=== PATIENT | male | born 1965 ===

== ENCOUNTER → 2022-01-23 08:24 | Outpatient (REF) | payer OTHER, SELFPAY ==
--- NOTE | 2022-01-23 08:29 | CA_ITS ---
Transthoracic Echocardiogram Patient (Last, First, Middle): Ab Daniel K Gender: Male Date of : 1965 Age: 56 Procedure Date: 01/23/2022 Procedure Type: Transthoracic Echocardiogram Location: OP Height: 167.64 cm Weight: 68.04 kg BSA: 1.77 m2 Heart Rate: bpm BP: 120 / 80 mmHg Heart Surgeon: VH/TO Referring MD: Yvan Shi PA-C Access Rep: Lj Sams MD Symptoms: I11.9 - Hypertensive heart disease without heart failure Study Quality: Fair ECG Rhythm: Sinus Conclusions: - 1. Moderately enlarged left ventricle with grade 1 diastolic dysfunction with mild LVH and normal LV ejection fraction 55-60% 2. Severe aortic regurgitation, eccentric 3. Mildly dilated left atrium 4. Mildly dilated ascending aorta at 4.3 cm 5. Normal RV systolic pressure 6. No pericardial effusion Findings Left Ventricle Moderately increased left ventricular cavity size. There is mildly increased left ventricular wall thickness. The left ventricular systolic function is normal. The visually estimated ejection fraction is between 55-60%. Spectral Doppler is indicative of an impaired relaxation filling pattern. E/E prime ratio is <8, consistent with normal filling pressures. Evidence suggests grade I (mild) diastolic dysfunction. Right Ventricle Normal right ventricular cavity size and systolic function. Atria The left atrium is mildly dilated. There is no evidence of interatrial shunt. The right atrium is normal in size. Aortic Valve The aortic valve was not well visualized. There is no aortic valve stenosis. There is severe aortic valve regurgitation. Holodiastolic flow reversal seen in the proximal descending thoracic aorta, highly sensitive for severe aortic regurgitation. quantitative analysis of aortic regurgitation was not performed on this study Mitral Valve Normal mitral valve structure and function. There is trace mitral valve regurgitation. There is no mitral valve stenosis. Pulmonic Valve The pulmonic valve was not well visualized. Tricuspid Valve Likely normal tricuspid valve structure and function. There is mild tricuspid valve regurgitation. The right ventricular systolic pressure is normal. The right ventricular systolic pressure is 19 mmHg. Normal right atrial pressure. There is no evidence of pulmonary hypertension. Great Vessels The pulmonary artery was not well visualized. There is mild dilatation of the ascending aorta measuring 4.30 cm. Venous The inferior vena cava is normal in size and collapses greater than 50% with inspiration. Pericardium/Pleural There is no evidence of pericardial effusion. Prior Study Comparison Changes noted compared to prior study dated: 04/11/2019. Aortic regurgitation appears to be severe. Left ventricular size is moderately enlarged Measurements 2D Linear Measurements IVSd: 1.15 0.6-0.9/0.6-1.0 cm LVIDd: 5.93 3.9-5.3/4.2-5.9 cm LVIDd Index: 3.35 2.4-3.2/2.2-3.1 cm/m2 LVIDs: 4.34 2.0-3.6 cm LVPWd: 1.23 0.7-1.1 cm LA Diam: 4.10 2.7-3.8/3.0-4.0 cm LAIDs Index: 2.32 1.5-2.3 cm/m2 LV Mass: 379.94 67-162/88-224 g LV Mass Index: 214.66 43-95/49-115 g/m2 LVOT Diam: 3.00 3.0+(-)1.3 cm Mitral Valve MV Pk E: 0.34 MV PK A: 0.72 MV Decel Time: 211.00 E/A: 0.50 E'Lateral: 6.09 E'Medial: 6.42 E/E' Med: 5.30 E/E' Lat: 5.60 PHT: 62.00 MVA PHT: 3.55 Decel [place]: 1.62 Aortic Valve AoV Pk Deepak: 2.19 AoV Mn Deepak: 1.45 AoV VTI: 0.44 AoV Pk Grad: 19.00 Aov Mn Grad: 10.00 MARIANN Cont.VTI: 5.11 AI Pk Deepak: 4.59 AI [place]: 4.63 LVOT LVOT Pk Deepak: 1.49 LVOT Mn Deepak: 0.92 LVOT VTI: 0.32 LVOT Pk Grad: 9.00 LVOT Mn Grad: 4.00 LVOT Diam: 3.00 LVOT Area: 7.07 Diastolic Function MV Pk E: 0.34 MV Pk A: 0.72 E/A: 0.50 E'Medial: 6.42 E/E' Med: 5.30 E' Laterial: 6.09 E/E' Lat: 5.60 Right Ventricle TAPSE (mm): 27.00 TVS' Deepak: 15.00 Tricuspid Valve TR Pk Deepak: 2.02 TR Pk Grad: 16.00 RA Press: 3.00 RVSP: 19.00 Great Vessels Aorta Ao Asc: 4.30 2.1-3.4 cm Pulmonary Valve PV Pk Deepak: 0.79 Peak PV Grad: 3.00 Updated in Other Vendor System with Status of Final Lj Sams MD electronically signed on 01/23/2022 11:46:09 AM with status of Final
== END ==
LOC: HO.CARD 08:24
PROVIDERS: PCP Physician Assistant; Visit Provider Physician Assistant
DX: I11.9 Hypertensive heart disease without heart failure (principal)
CPT/HCPCS: 93306

== ENCOUNTER → 2022-01-25 13:16 | Outpatient (BNVA) | payer OTHER, SELFPAY | PROVIDERS: PCP Physician Assistant; Referring Provider Physician Assistant; Visit Provider Internal Medicine Cardiovascular Disease | DX: I35.1 Nonrheumatic aortic (valve) insufficiency (principal) | CPT/HCPCS: 93005 ==

== ENCOUNTER 2022-02-01 07:06 | Outpatient (REF) | payer OTHER, SELFPAY ==
[2022-02-01 08:02] LABS: Hematocrit 45.4 % (42.0-52.0); Hemoglobin 14.9 g/dl (14.0-18.0); Mean Corpuscular HGB Conc 32.8 g/dl (31.0-36.0); Mean Corpuscular Hemoglobin 30.2 pg (27.0-33.0); Mean Corpuscular Volume 91.9 fL (80.0-98.0); Mean Platelet Volume 9.9 fL (9.4-12.4); Platelet Count 240 X10*3/uL (160-400); Red Blood Count 4.94 X10*6/uL (4.60-5.80); Red Cell Distribution Width 12.3 % (11.0-16.0); White Blood Count 7.6 X10*3/uL (4.8-10.8)
[2022-02-01 08:03] LABS: Prothrombin Time 11.5 SEC (9.9-13.0)
[2022-02-01 08:17] LABS: Estimated Average Glucose 108 mg/dL; Hemoglobin A1c % 5.4 %
[2022-02-01 08:19] LABS: Alanine Aminotransferase 21 U/L (0-40); Albumin Level 4.2 g/dL (3.5-5.0); Alkaline Phosphatase 86 U/L (39-117); Anion Gap 13 (12-20); Aspartate Amino Transferase 21 U/L (5-37); Bilirubin Total 0.5 mg/dL (0.0-1.0); Blood Urea Nitrogen 27 mg/dL (9-16); Calcium 9.9 mg/dL (8.4-10.2); Carbon Dioxide 27 mmol/L (22-29); Chloride 104 mmol/L (96-108); Cholesterol 148 mg/dL; Estimated Glomerular Filt Rate 48; Glucose Fasting 99 mg/dL (60-99); HDL Cholesterol 42 mg/dL; LDL Cholesterol Calculated 92 mg/dl; Potassium 5.1 mmol/L (3.3-5.1); Sodium 139 mmol/L (135-145); Total Protein 7.2 g/dL (6.5-8.0); Triglycerides 73 mg/dL
[2022-02-01 08:27] LABS: Creatinine Urine 64.07 mg/dL; Microalbumin Urine < 5.0 mg/L
[2022-02-01 08:43] LABS: Prostate Specific Antigen Scr 1.86 ng/mL (<0.05-4.0); TSH reflex Free T4 1.51 uIU/mL (0.32-4.0)
== END 2022-02-01 07:07 | disposition home or self-care (01) ==
LOC: HO.LAB 07:06
PROVIDERS: Absent Provider Internal Medicine Cardiovascular Disease; PCP Physician Assistant; Visit Provider Physician Assistant
DX: Z12.5 Encounter for screening for malignant neoplasm of prostate (principal); I10 Essential (primary) hypertension; E78.2 Mixed hyperlipidemia; I35.1 Nonrheumatic aortic (valve) insufficiency
CPT/HCPCS: 36415; 80048; 80053; 80061; 82043; 83036; 84153; 84443; 85027; 85610

== ENCOUNTER → 2022-02-22 13:32 | Outpatient (BNVA) | payer OTHER, SELFPAY | PROVIDERS: PCP Physician Assistant; Referring Provider Physician Assistant; Visit Provider Internal Medicine Cardiovascular Disease | DX: Z13.89 Encounter for screening for other disorder (principal) ==

== ENCOUNTER → 2022-11-28 07:26 | Outpatient (REF) | payer OTHER, SELFPAY ==
--- NOTE | 2022-11-28 07:29 | CA_ITS ---
Transthoracic Echocardiogram Amended Patient (Last, First, Middle): Ab Daniel K Gender: Male Date of : 1965 Age: 57 Procedure Date: 11/28/2022 Procedure Type: Transthoracic Echocardiogram Location: OP Height: 167.64 cm Weight: 68.04 kg BSA: 1.77 m2 Heart Rate: bpm BP: 135 / 50 mmHg Forensic Nurse: RADHA Referring MD: Lj Sams MD Symptoms: I35.1 - Nonrheumatic aortic (valve) insufficiency Study Quality: Adequate ECG Rhythm: Sinus Conclusions: - Moderately increased left ventricular cavity size (LVEDD 6.4cm). - The left ventricular systolic function is normal. The calculated ejection fraction is 60% by biplane method. - Aortic valve appears trileaflet. Probable prolapse of left cusp but not well visualized. Cannot exclude perforation. Moderate to severe (vs severe) eccentric aortic regurgitation. However, no flow reversal noted in arch/thoracic/abdominal aorta. Consider ROBBY. - There is mild dilatation of the sinuses of Valsalva measuring 4.24 cm and mild dilatation of the ascending aorta measuring 4.30 cm. Findings Left Ventricle Moderately increased left ventricular cavity size. There is mildly increased left ventricular wall thickness. The left ventricular systolic function is normal. The calculated ejection fraction is 60% by biplane method. There is no evidence of regional wall motion abnormalities. Diastolic function is normal for age. E/E prime ratio is between 8 and 15 consistent with indeterminate filling pressures. LV peak GLS -17.4%. Right Ventricle Normal right ventricular cavity size and systolic function. Atria The left atrium is moderately dilated. The right atrium is normal in size. Aortic Valve There is mild calcification of the aortic valve. There is no aortic valve stenosis. Aortic valve appears trileaflet. Probable prolapse of left cusp but not well visualized. Cannot exclude perforation. Moderate to severe (vs severe) eccentric aortic regurgitation. However, no flow reversal noted in arch/thoracic/abdominal aorta. Consider ROBBY. Mitral Valve The mitral valve appears normal. There is mild mitral annular calcification. There is no mitral valve stenosis. Pulmonic Valve The pulmonic valve is likely normal. Tricuspid Valve Normal tricuspid valve structure. There is trace tricuspid valve regurgitation. There is no evidence of pulmonary hypertension. Great Vessels There is mild dilatation of the sinuses of Valsalva measuring 4.24 cm and mild dilatation of the ascending aorta measuring 4.30 cm. Venous The inferior vena cava is normal in size and collapses greater than 50% with inspiration. Pericardium/Pleural There is no evidence of pericardial effusion. Prior Study Comparison No significant change compared to prior study dated: 01/23/2022. Measurements 2D Linear Measurements IVSd: 1.18 0.6-0.9/0.6-1.0 cm LVIDd: 6.40 3.9-5.3/4.2-5.9 cm LVIDd Index: 3.62 2.4-3.2/2.2-3.1 cm/m2 LVIDs: 4.41 2.0-3.6 cm LVPWd: 1.34 0.7-1.1 cm LA Diam: 3.40 2.7-3.8/3.0-4.0 cm LAIDs Index: 1.92 1.5-2.3 cm/m2 LV Mass: 465.49 67-162/88-224 g LV Mass Index: 262.99 43-95/49-115 g/m2 LVOT Diam: 3.00 3.0+(-)1.3 cm 2D Volumes LA Vol: 40.70 2D Systolic Function EF 4C: 56.80 >55% EF 2C: 63.90 >55% EF BiP: 60.20 >55% Mitral Valve MV Pk E: 0.58 MV PK A: 0.89 MV Decel Time: 248.00 E/A: 0.70 E'Lateral: 9.14 E'Medial: 7.29 E/E' Med: 8.00 E/E' Lat: 6.30 PHT: 73.00 MVA PHT: 3.01 Decel [place]: 2.34 Aortic Valve AoV Pk Deepak: 2.17 AoV Mn Deepak: 1.38 AoV VTI: 0.48 AoV Pk Grad: 19.00 Aov Mn Grad: 9.00 MARIANN Cont.VTI: 5.47 AI Pk Deepak: 4.35 AI VTI: 2.11 AI [place]: 4.48 AI Alias Deepak: 0.38 AI RV - PISA: 57.00 ERO - PISA: 27.00 LVOT LVOT Pk Deepak: 1.65 LVOT Mn Deepak: 0.97 LVOT VTI: 0.37 LVOT Pk Grad: 11.00 LVOT Mn Grad: 5.00 LVOT Diam: 3.00 LVOT Area: 7.07 Diastolic Function MV Pk E: 0.58 MV Pk A: 0.89 E/A: 0.70 E'Medial: 7.29 E/E' Med: 8.00 E' Laterial: 9.14 E/E' Lat: 6.30 Right Ventricle TAPSE (mm): 2.90 TVS' Deepak: 16.40 Tricuspid Valve TR Pk Deepak: 1.81 TR Pk Grad: 13.00 RA Press: 3.00 RVSP: 16.00 Great Vessels Aorta Sinus of Valsalva: 4.24 2.0-3.[address] [place]: 3.26 1.7-3.4 cm Ao Asc: 4.30 2.1-3.4 cm Updated in Other Vendor System with Status of Final Jaron Oneal MD electronically signed on 11/28/2022 10:42:16 AM with status of Final
== END ==
LOC: HO.CARD 07:26
PROVIDERS: PCP Physician Assistant; Visit Provider Internal Medicine Cardiovascular Disease
DX: I35.1 Nonrheumatic aortic (valve) insufficiency (principal)
CPT/HCPCS: 93306; 93356

== ENCOUNTER → 2022-12-14 09:32 | Outpatient (BNVA) | payer OTHER, SELFPAY | PROVIDERS: PCP Physician Assistant; Referring Provider Physician Assistant; Visit Provider Internal Medicine Cardiovascular Disease | DX: Z13.89 Encounter for screening for other disorder (principal) ==

== ENCOUNTER 2023-01-02 18:27 | Emergency (ER) | payer OTHER, SELFPAY ==
--- NOTE | ~2023-01-02 | XR_ITS ---
EXAMINATION: XR CHEST CLINICAL INFORMATION: Shortness of breath. COMPARISON: Chest radiograph 09/13/2010. TECHNIQUE: 2 views of the chest were obtained. FINDINGS: Unchanged appearance of the cardiomediastinal silhouette with suggestion of dilatation of the ascending thoracic aorta. No focal airspace opacity, pleural effusion or pneumothorax. Thoracic spondylosis. No acute osseous abnormalities. XR/XR chest 2V IMPRESSION: 1. No acute cardiopulmonary findings. 2. Unchanged appearance of the cardiomediastinal silhouette with suggestion of dilatation of the ascending thoracic aorta.
[2023-01-02 19:33] VITALS: BP 156/56; PULSE 77; RESP 18; TEMP 36.6; O2SAT 95; BMI 24.2
--- NOTE | 2023-01-02 19:34 | ED.SOB ---
HPI - SOB/Dyspnea General Chief Complaint: Dyspnea Stated Complaint: sob/ coughing Related Data Previous Rx's Medication Instructions Recorded amlodipine 5 mg tablet (Norvasc) 5 mg PO DAILY #30 tabs 07/25/22 atorvastatin 20 mg tablet 20 mg PO DAILY #30 tabs 07/25/22 lisinopril 20 1 tab PO DAILY 30 days #30 tabs 08/24/22 mg-hydrochlorothiazide 12.5 mg tablet Allergies Allergy/AdvReac Type Severity Reaction Status Date / Time No Known Allergies Allergy Verified 01/02/23 19:37 [facility] Past Medical History Medical History Severe aortic regurgitation Surgical History No history of previous surgery Family History Family History Mother Stroke Father Heart attack, Onset Age: 58 Social History Social History Housing: House Alcohol intake: former Year quit: 2005 Patient Tobacco Use Status: Never used Tobacco e-Cigarette/Vaping Use: Never Used Second Hand Smoke Exposure: No Advance Directives: No Advance Directives Information Provided: No service: No Current occupational status: employed Current occupation: [employer] Current occupational exposures/hazards: No Cognitive needs: No Hearing needs: No Vision needs: No Physical Exam Vital Signs: Vital Signs: Last Vital Signs Temp 97.9 F 01/02/23 19:33 Pulse 77 01/02/23 19:33 Resp 18 01/02/23 19:33 BP 156/56 H 01/02/23 19:33 Pulse Ox 95 01/02/23 19:33 O2 Del Method 01/02/23 19:33 BMI result Body Mass Index 24.2 Course Course Course Narrative: Patient is a 57-year-old male with past medical history of hypertension, presenting to emergency department. Complaining of shortness of breath, onset suddenly at 1830. States he was taking out the trash, washing dishes and shortness of breath began. states at 18:15 took mucinex as he had a cough that started 45 minutes prior to that. Cough is nonproductive. Denies chest pain, dizziness, nausea, vomiting. Denies any history of asthma/COPD. Denies known sick contacts. States he is not a cigarette smoker, denies history of cigarette smoking, cancer, DVT/PE PE: Speaking clear full sentences, LSCTA Plan: labs, EKG, CXR, viral testing Medical Decision Making Lab Data 01/02/23 20:02 01/02/23 20:02 Labs: Lab Results 01/02/23 01/02/23 01/02/23 Range/Units 20:02 20:02 20:02 WBC 8.1 (4.8-10.8) X10*3/uL RBC 4.57 L (4.60-5.80) X10*6/uL Hgb 14.0 (14.0-18.0) g/dl Hct 40.4 L (42.0-52.0) % MCV 88.4 (80.0-98.0) fL MCH 30.6 (27.0-33.0) pg MCHC 34.7 (31.0-36.0) g/dl RDW 12.1 (11.0-16.0) % Plt Count 218 (160-400) X10*3/uL MPV 9.6 (9.4-12.4) fL Immature Gran % (Auto) 0.2 (0.0-0.4) % Neut % (Auto) 64.1 (45-73) % Lymph % (Auto) 20.5 (20-40) % [place] % (Auto) 11.5 H (2-11) % Eos % (Auto) 2.8 (0-4) % Baso % (Auto) 0.9 (0-2) % Lymph # (Auto) 1.7 (1.2-4.9) X10*3/uL [place] # (Auto) 0.9 (0.1-1.2) X10*3/uL Eos # (Auto) 0.2 (0.0-0.4) X10*3/uL Baso # (Auto) 0.1 (0.0-0.2) X10*3/uL Abs Immat Gran (auto) 0.02 (0.00-0.03) X10*3/uL Absolute Neuts (auto) 5.2 (2.0-8.3) x10*3/uL Absolute Nucleated RBC 0.000 (0.0-0.012) X10*3/uL Nucleated RBC % (auto) 0.0 (0.0-0.2) /100WBC PT 12.7 (10.0-13.1) SEC INR 1.1 (0.9-1.1) Sodium 136 (135-145) mmol/L Potassium 4.4 (3.3-5.1) mmol/L Chloride 103 (96-108) mmol/L Carbon Dioxide 24 (22-29) mmol/L Anion Gap 13 (12-20) BUN 23 H (9-16) mg/dL Creatinine 1.79 H (0.5-1.4) mg/dL Estim Creat Clear Calc 42.0 Estimated GFR 40 Random Glucose 84 (60-115) mg/dL Calcium 8.8 D (8.4-10.2) mg/dL Total Bilirubin 0.9 (0.0-1.0) mg/dL AST 23 (5-37) U/L ALT 24 (0-40) U/L Alkaline Phosphatase 92 (39-117) U/L Troponin I High Sens (<3.5-35.0) ng/L Total Protein 6.6 (6.5-8.0) g/dL Albumin 4.0 (3.5-5.0) g/dL COVID-19 (ANDI) (Negative) COVID-19 Clin Com Influenza Type A (CHELSEA) (Negative) Influenza Type B (CHELSEA) (Negative) Influenza A & B Note 01/02/23 01/02/23 01/02/23 Range/Units 20:02 20:02 20:02 WBC (4.8-10.8) X10*3/uL RBC (4.60-5.80) X10*6/uL Hgb (14.0-18.0) g/dl Hct (42.0-52.0) % MCV (80.0-98.0) fL MCH (27.0-33.0) pg MCHC (31.0-36.0) g/dl RDW (11.0-16.0) % Plt Count (160-400) X10*3/uL MPV (9.4-12.4) fL Immature Gran % (Auto) (0.0-0.4) % Neut % (Auto) (45-73) % Lymph % (Auto) (20-40) % [place]borne % (Auto) (2-11) % Eos % (Auto) (0-4) % Baso % (Auto) (0-2) % Lymph # (Auto) (1.2-4.9) X10*3/uL [place] # (Auto) (0.1-1.2) X10*3/uL Eos # (Auto) (0.0-0.4) X10*3/uL Baso # (Auto) (0.0-0.2) X10*3/uL Abs Immat Gran (auto) (0.00-0.03) X10*3/uL Absolute Neuts (auto) (2.0-8.3) x10*3/uL Absolute Nucleated RBC (0.0-0.012) X10*3/uL Nucleated RBC % (auto) (0.0-0.2) /100WBC PT (10.0-13.1) SEC INR (0.9-1.1) Sodium (135-145) mmol/L Potassium (3.3-5.1) mmol/L Chloride (96-108) mmol/L Carbon Dioxide (22-29) mmol/L Anion Gap (12-20) BUN (9-16) mg/dL Creatinine (0.5-1.4) mg/dL Estim Creat Clear Calc Estimated GFR Random Glucose (60-115) mg/dL Calcium (8.4-10.2) mg/dL Total Bilirubin (0.0-1.0) mg/dL AST (5-37) U/L ALT (0-40) U/L Alkaline Phosphatase (39-117) U/L Troponin I High Sens 14.2 (<3.5-35.0) ng/L Total Protein (6.5-8.0) g/dL Albumin (3.5-5.0) g/dL COVID-19 (ANDI) Negative (Negative) COVID-19 Clin Com See Note Influenza Type A (CHELSEA) Negative (Negative) Influenza Type B (CHELSEA) Negative (Negative) Influenza A & B Note See Note Discharge Plan Discharge Clinical Impression: Shortness of breath Patient Disposition: Elopement Prescriptions: No Action amlodipine [Norvasc] 5 mg tablet 5 mg PO DAILY Qty: 30 5RF atorvastatin 20 mg tablet 20 mg PO DAILY Qty: 30 5RF lisinopril-hydrochlorothiazide 20-12.5 mg tablet 1 tab PO DAILY 30 Days Qty: 30 4RF Interventions: ED Discharge Assessment Last Done: 01/02/23 22:04 Discharge Date/Time: 01/02/23 22:05
--- NOTE | 2023-01-02 19:40 | ECG_ITS ---
Test Reason : sob/cough Blood Pressure : / mmHG Vent. Rate : 066 BPM Atrial Rate : 066 BPM P-R Int : 176 ms QRS Dur : 102 ms QT Int : 406 ms P-R-T Axes : 051 048 043 degrees QTc Int : 425 ms Normal sinus rhythm Possible Left atrial enlargement Nonspecific T wave abnormality Abnormal ECG When compared with ECG of 04-MAR-2012 09:35, T wave inversion no longer evident in Inferior leads Referred By: Kathryn Hyde Electronically Signed By:Nilson Merino
[2023-01-02 20:09] LABS: MANUAL DIFF FLAG NO
[2023-01-02 20:13] LABS: Basophils Absolute Auto 0.1 X10*3/uL (0.0-0.2); Basophils Percent Auto 0.9 % (0-2); Eosinophils Absolute Auto 0.2 X10*3/uL (0.0-0.4); Eosinophils Percent Auto 2.8 % (0-4); Hematocrit 40.4 % (42.0-52.0); Imm Gran Abs Auto 0.02 X10*3/uL (0.00-0.03); Imm Gran Pct Auto 0.2 % (0.0-0.4); Lymphocytes Absolute Auto 1.7 X10*3/uL (1.2-4.9); Lymphocytes Percent Auto 20.5 % (20-40); Mean Corpuscular HGB Conc 34.7 g/dl (31.0-36.0); Mean Corpuscular Hemoglobin 30.6 pg (27.0-33.0); Mean Corpuscular Volume 88.4 fL (80.0-98.0); Mean Platelet Volume 9.6 fL (9.4-12.4); Monocytes Absolute Auto 0.9 X10*3/uL (0.1-1.2); Monocytes Percent Auto 11.5 % (2-11); Neutrophils Absolute Auto 5.2 x10*3/uL (2.0-8.3); Neutrophils Percent Auto 64.1 % (45-73); Platelet Count 218 X10*3/uL (160-400); Red Blood Count 4.57 X10*6/uL (4.60-5.80); Red Cell Distribution Width 12.1 % (11.0-16.0); White Blood Count 8.1 X10*3/uL (4.8-10.8)
[2023-01-02 20:22] LABS: INTERNATIONAL NORM RATIO 1.1 (0.9-1.1); Prothrombin Time 12.7 SEC (10.0-13.1)
[2023-01-02 20:24] LABS: COVID-19 Test Negative (Negative); IDNOW Serial# BCCEAD1C
[2023-01-02 20:28] LABS: IDNOW Serial# 9DB6401D; Influenza A Negative (Negative); Influenza B2 Negative (Negative)
[2023-01-02 20:30] LABS: Alanine Aminotransferase 24 U/L (0-40); Alkaline Phosphatase 92 U/L (39-117); Anion Gap 13 (12-20); Aspartate Amino Transferase 23 U/L (5-37); Bilirubin Total 0.9 mg/dL (0.0-1.0); Blood Urea Nitrogen 23 mg/dL (9-16); Calcium 8.8 mg/dL (8.4-10.2); Carbon Dioxide 24 mmol/L (22-29); Chloride 103 mmol/L (96-108); Estimated Glomerular Filt Rate 40; Glucose Random 84 mg/dL (60-115); Potassium 4.4 mmol/L (3.3-5.1); Sodium 136 mmol/L (135-145); Total Protein 6.6 g/dL (6.5-8.0)
[2023-01-02 20:37] LABS: Troponin-I High Sensitivity 14.2 ng/L (<3.5-35.0)
== END 2023-01-02 22:05 | disposition left against medical advice (07) ==
PROVIDERS: Nurse Practitioner Family; Emergency Provider Emergency Medicine; PCP Physician Assistant
DX: R06.02 Shortness of breath (principal); Z20.822 Contact with and (suspected) exposure to COVID-19; Z20.828 Contact with and (suspected) exposure to other viral communicable diseases; Z79.899 Other long term (current) drug therapy
CPT/HCPCS: 36415; 71046; 80053; 84484; 85025; 85610; 87502; 87635; 93005; 99283

== ENCOUNTER 2024-06-11 09:05 | Outpatient (AMB) | payer OTHER, SELFPAY ==
[2024-06-11 09:17] VITALS: BP 122/50; PULSE 80; O2SAT 96; BMI 25.7
--- NOTE | 2024-06-11 09:17 | MHC.PC.OV ---
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 Accompanied by: Self / Same As Patient Allergies No Known Allergies Allergy (Verified 06/11/24 09:27) Medication List - Last Reconciled 06/11/24 by Yvan Shi PA-C amlodipine (Norvasc) 5 mg PO DAILY 30 days atorvastatin 40 mg PO DAILY lisinopril-hydrochlorothiazide 20-12.5 mg 1 tab PO DAILY Tobacco use date assessed: 06/11/24 Dental Screening Dental Screen Date: 06/11/24 Did you have a dental visit in the last 12 months?: No Did you have a dental problem in the last 6 months where you did not have access to dental care?: No Was dental information given to patient?: Patient declined HPI F/U HTN-aortic regurg HPI Details Patient is a 59 year male here today for for a f/u visit.? Patient has a past medical history significant for hypertension, severe aortic regurgitation, LVH and coronary artery disease. Aortic valve stenosis/cardiomyopathy: Patient is followed by Cardiology for coronary artery disease and aortic regurgitation.? He is due for repeat echocardiogram. He has been apprehensive on fixing the valve as he takes care of his elderly mother at home. Patient is in need of a aortic valve replacement though as apprehensive on doing this at this time due to having to take care was mother. Otherwise he has no overt signs of Congestive heart failure. .. Hypertension:? Blood pressure elevated today in office.? He reports he is adherent to antihypertensive medications.? He denies any side effects. .. Hyperlipidemia: Most recent lipid panel showing fairly well controlled total cholesterol and LDL. Optimal LDL to be below LDL due to his coronary artery disease [facility] Medical History Severe aortic regurgitation Surgical History No history of previous surgery Family History Mother Stroke Father Heart attack, Onset Age: 58 Social History Housing: House Alcohol intake: former Year quit: 2006 Patient Tobacco Use Status: Never used Tobacco e-Cigarette/Vaping Use: Never Used Second Hand Smoke Exposure: No service: No Current occupational status: employed Current occupation: [employer] Current occupational exposures/hazards: No Cognitive needs: No Hearing needs: No Vision needs: No Questionnaire PHQ-9 Over the last 2 weeks, how often have you been bothered by any of the following problems? 1. Little interest or pleasure in doing things: not at all 2. Feeling down, depressed, or hopeless: not at all 3. Trouble falling or staying asleep, or sleeping too much: not at all 4. Feeling tired or having little energy: not at all 5. Poor appetite or overeating: not at all 6. Feeling bad about yourself - or that you are a failure or have let yourself or your family down: not at all 7. Trouble concentrating on things, such as reading the newspaper or watching television: not at all 8. Moving or speaking so slowly that other people could have noticed. Or the opposite - being so fidgety or restless that you have been moving around a lot more than usual: not at all 9. Thoughts that you would be better off or of hurting yourself in some way: not at all Total score: 0 Depression Screening Interpretation: Negative Depression Screening Done: Yes 32019 - PHQ-9 Billing: Yes Source: Developed by Drs. Edgar Nance, sEme Jesus, Dhruv Hairston and colleagues, with an educational richard from [employer]. Thrive Questionnaire Date Thrive assessed: 06/11/24 I am a: Patient What is your living situation today?: I have a steady place to live Within the past 12 months, did the food you bought not last and you didn't have the money to get more?: Never true Within the past 12 months, did you worry whether your food would run out before you got money to buy more?: Never true Do you have trouble paying for medicines?: No Do you have trouble getting transportation to medical appointments?: No Do you have trouble paying your heating and electricity bill?: No Do you have trouble taking care of your child, family member or friend?: No Do you have trouble with day-to-day activities such as bathing, preparing meals, shopping, managing finances, etc.?: No Are you currently unemployed and looking for a job?: No Are you interested in more education?: No Please select the resources that you would like help with: None Currently or been in a relationship where the following occur: No concerns reported THRIVE Score: 0 AUDIT C Alcohol Use Questionnaire (AUDIT-C) 1. How often do you have a drink containing alcohol?: Never 3. How often do you have six or more drinks on one occasion?: Never Total Score: 0 DEBRA-7 AMB Questionnaire DEBRA-7 Date DEBRA - 7 assessed: 06/11/24 Feeling nervous, anxious, or on edge: 0 = Not at all Not being able to stop or control worryin = Not at all Worrying too much about different things: 0 = Not at all Trouble relaxin = Not at all Being so restless that it is hard to sit still: 0 = Not at all Becoming easily annoyed or irritable: 0 = Not at all Feeling afraid as if something awful might happen: 0 = Not at all Total DEBRA-7 score (0-4 normal; 5-9 mild; 10-14 moderate; 15-21 severe): 0 Source: Developed by Drs. Edgar Nance, Esme Jesus, Dhruv Hairston and colleagues, with an educational richard from [employer]. DEBRA-7 Assessment Billing DEBRA-7 Assessment Tool: DEBRA-7 Assessment 29980 Review of Systems Const Denies body aches, Denies chills, Denies excessive sweating, Denies fatigue, Denies fever(s) and Denies headache(s) Eyes Denies blurry vision ENT Denies dysphagia, Denies vertigo, Denies dizziness, Denies headache(s), Denies hearing loss and Denies tinnitus Card Denies chest pain, Denies chest pain with activity, Denies syncope, Denies irregular heart rhythm and Denies dyspnea Resp Denies chest congestion, Denies cough, Denies hemoptysis, Denies dyspnea and Denies wheezing GI Denies abdominal pain, Denies melena, Denies hematochezia, Denies coffee ground emesis, Denies dysphagia, Denies diarrhea, Denies nausea and Denies vomiting Denies difficulty urinating, Denies dysuria, Denies urinary frequency, Denies urinary hesitancy and Denies urinary urgency Musc Denies arthralgias, Denies limited range of motion, Denies muscle cramps and Denies muscle weakness Skin/Breast Denies rash and Denies skin ulcer Neuro Denies Abnormal speech present, Denies confusion, Denies vertigo, Denies dizziness, Denies syncope, Denies headache(s), Denies memory loss and Denies seizure-like activity Psych Denies anxiety, Denies confusion, Denies depression, Denies memory loss, Denies panic attacks and Denies paranoia Endo Denies excessive sweating, Denies fatigue, Denies flushing, Denies polydipsia and Denies polyuria Larry/Lymph Denies easy bleeding and Denies easy bruising Aller/Immun Denies wheezing Physical exam (Primary Care) Vital Signs: Last Vital Signs Pulse 80 06/11/24 09:17 BP 122/50 L 06/11/24 09:17 Pulse Ox 96 06/11/24 09:17 Oxygen Delivery Method Room Air 06/11/24 09:17 BMI result Body Mass Index 25.7 Tobacco/Smoking Status: Tobacco use Status Tobacco use date assessed 06/11/24 06/11/24 09:21 Patient Tobacco Use Status Never used Tobacco 06/11/24 09:21 e-Cigarette/Vaping Use Never Used 06/11/24 09:21 PHQ-9: PHQ-9 Score PHQ-9: Total score 0 06/11/24 09:21 Depression Screening Interpretation: Negative Thrive Assessment: Date of Thrive Assessment Date Thrive assessed 06/11/24 06/11/24 09:21 Currently or been in a relationship where the following occur: No concerns reported Const General: cooperative, comfortable, no acute distress, alert and awake; No confusion Nutritional Appearance: well nourished Orientation/consciousness: oriented to person, oriented to place, patient oriented x3 and No confusion HENMT Head: Yes normocephalic Ears: external ears normal and TM's normal bilaterally General nose exam: Normal nasal mucous membranes and turbinates present Face and sinus: No sinus tenderness Mouth: Normal oral and palatal mucosa present and tongue normal Teeth and gingiva: dentition normal and gingiva normal Throat: Yes posterior oropharynx normal, Yes tonsils normal and Yes uvula midline Eyes Conjunctivae: conjunctivae normal Sclerae: sclerae normal Pupils: Equal, round and reactive pupils present EOM: EOMs intact bilaterally Direct Ophthalmoscopy: No no photophobia Neck Neck: Yes no lymphadenopathy, No tender and Yes no JVD Thyroid: Thyroid normal Carotids: no bruits Chest Chest palpation & inspection: no tenderness Resp Effort & Inspection: normal respiratory effort, no audible wheezes, not labored and no stridor Auscultation: no crackles, no rales, no rhonchi and no wheezes Cardio Jugular venous distension: no JVD Rate: regular rate, not bradycardic and not tachycardic Rhythm: regular rhythm Heart sounds: Murmur heart sound present systolic II/ and normal S1 and S2 Bruits: no carotid bruits Peripheral pulses: Peripheral pulses 2+ throughout GI Inspection: Yes normal to inspection, No abdominal wall ecchymosis and No visible herniation Palpation (GI): Soft to palpation, nontender, no guarding, not rigid and No hepatosplenomegaly present Auscultation: normoactive bowel sounds General: Yes no CVA tenderness Back/Spine/Pelvis Back: no CVA tenderness and No back tenderness Cervical Spine: cervical ROM normal Thoracic/Lumbar Spine: thoracic and lumbar spine normal to inspection, straight leg raise negative bilaterally, No thoraco-lumbar ROM limited and No lumbar spinal tenderness Skin General skin exam: no rashes or lesions noted and dry skin Lesions: no lesions Rashes: no rashes Wounds: no wounds Neuro General: oriented to person, oriented to place, patient oriented x3, CN's II-XI intact bilaterally and No confusion Cranial nerves: Yes Equal, round and reactive pupils present and Yes Normal accommodation reflex present Cognition (Neuro): normal cognition Speech: No Abnormal speech present Gait exam (Neuro): Normal gait present Motor exam (neuro): 5/5 motor strength present throughout Extrem Right upper extremity: full ROM; no cyanosis Left upper extremity: full ROM; no cyanosis Right lower extremity: no edema Left lower extremity: no edema Psych Appearance: grossly normal Mental Status: mental status grossly normal Speech and movement: Normal speech and movement present Affect: normal affect Attitude: cooperative Thought process: Normal thought process present Assessment and Plan Assessment & Plan (1) Severe aortic regurgitation: Code(s): I35.1 - Nonrheumatic aortic (valve) insufficiency Plan: Patient does have severe aortic regurg with cardiomyopathy noted. Does have murmur on physical exam. Does see ribbon weaver whom highly recommends value replacement though patient declines at this time. Otherwise no overt signs of Congestive heart failure at this time. Has no further cardiology follow-up. Will send transthoracic echocardiogram to monitor his aortic valve stenosis. (2) Cardiomyopathy: Code(s): I42.9 - Cardiomyopathy, unspecified Qualifiers: Cardiomyopathy type: dilated Qualified Code(s): I42.0 - Dilated cardiomyopathy Plan: Has LVH likely secondary to his aortic valve stenosis. No overt signs of Congestive heart failure. (3) HLD (hyperlipidemia): Code(s): E78.5 - Hyperlipidemia, unspecified Qualifiers: Hyperlipidemia type: mixed hyperlipidemia Qualified Code(s): E78.2 - Mixed hyperlipidemia Plan: Patient continues on statin therapy and LDL suboptimally controlled. Will increase his potency of statin. Goal LDL optimally below 70 (4) HTN (hypertension): Code(s): I10 - Essential (primary) hypertension Qualifiers: Hypertension type: essential hypertension Qualified Code(s): I10 - Essential (primary) hypertension Plan: Patient's blood pressure stable today in office. Will continue his current dose of antihypertensive medication with goal blood pressure to remain below 140/90 Orders: Orders Complete Blood Count no Diff Today I25.10 - Atherosclerotic heart disease of [place] coronary artery without angina pectoris Prostate Specific Antigen Scr Today I10 - Essential (primary) hypertension, Z12.5 - Encounter for screening for malignant neoplasm of prostate Microalbumin, Random (w Creat) Today I10 - Essential (primary) hypertension Lipid Panel Today E78.2 - Mixed hyperlipidemia Comprehensive [place]. Panel Fast Today I10 - Essential (primary) hypertension [place] echo transthoracic complete Today I35.1 - Nonrheumatic aortic (valve) insufficiency, I42.0 - Dilated cardiomyopathy Patient Instructions: Goal: Blood pressure to be below 140/90 LDL to be optimally below 70 Barriers: Adherence to physical activity and healthy eating habits Coding Level of Care Code Est Pt Level 4 (60407) Diagnoses Severe aortic regurgitation I35.1 Dilated cardiomyopathy I42.0 Cardiomyopathy type: dilated Mixed hyperlipidemia E78.2 Hyperlipidemia type: mixed hyperlipidemia Essential hypertension I10 Hypertension type: essential hypertension Additional Codes DEBRA-7 Assessment Billing - DEBRA-7 Assessment Tool: DEBRA-7 Assessment 37535 ([id number])
== END 2024-06-11 09:35 | disposition home or self-care (01) ==
PROVIDERS: PCP Physician Assistant; Visit Provider Physician Assistant
DX: I35.1 Nonrheumatic aortic (valve) insufficiency (principal); I42.0 Dilated cardiomyopathy; E78.2 Mixed hyperlipidemia; I10 Essential (primary) hypertension
CPT/HCPCS: 99214

== ENCOUNTER 2024-12-15 08:04 | Outpatient (AMB) | payer OTHER, SELFPAY ==
[2024-12-15 08:13] VITALS: BP 122/52; PULSE 79; O2SAT 98; BMI 26.6
--- NOTE | 2024-12-15 08:13 | A.OFFPC_ITS ---
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 Accompanied by: Self / Same As Patient Allergies No Known Allergies Allergy (Verified 12/15/24 08:20) Medication List - Last Reconciled 12/15/24 by Yvan Shi PA-C amlodipine (Norvasc) 5 mg PO DAILY 30 days atorvastatin 40 mg PO DAILY lisinopril-hydrochlorothiazide 20-12.5 mg 1 tab PO DAILY Tobacco use date assessed: 12/15/24 Dental Screening Dental Screen Date: 12/15/24 Did you have a dental visit in the last 12 months?: No Did you have a dental problem in the last 6 months where you did not have access to dental care?: No Was dental information given to patient?: No HPI Annual Exam HPI Details Patient is a 59 year male here today for for a f/u visit.? Patient has a past medical history significant for hypertension, severe aortic regurgitation, LVH and coronary artery disease. Aortic valve stenosis/cardiomyopathy: Patient is followed by Cardiology for coronary artery disease and aortic regurgitation.? He is due for repeat echocardiogram. He has been apprehensive on fixing the valve as he takes care of his elderly mother at home. Patient is in need of a aortic valve replacement though as apprehensive on doing this at this time due to having to take care was mother. Otherwise he has no overt signs of Congestive heart failure. .. Hypertension:? Blood pressure stable today in office.? He reports he is adherent to antihypertensive medications.? He denies any side effects. .. Hyperlipidemia: Most recent lipid panel showing fairly well controlled total cholesterol and LDL. Optimal LDL to be below 70 LDL due to his coronary artery disease Colon cancer screening:? Cologuard done in 2022 which was negative. .. vAccine:UTD with COVID vaccine, Needs PVC, Need Flu vaccine, considering shingles vaccine PFSH Medical History Severe aortic regurgitation Surgical History No history of previous surgery Family History Mother Stroke Father Heart attack, Onset Age: 58 Social History (Updated 12/15/24 @ 08:24 by Yvan Shi PA-C) Housing: House Alcohol intake: former Year quit: 2005 Patient Tobacco Use Status: Never used Tobacco e-Cigarette/Vaping Use: Never Used Second Hand Smoke Exposure: No service: No Current occupational status: employed Current occupation: [employer] Current occupational exposures/hazards: No Cognitive needs: No Hearing needs: No Vision needs: No Questionnaire PHQ-9 Over the last 2 weeks, how often have you been bothered by any of the following problems? 1. Little interest or pleasure in doing things: not at all 2. Feeling down, depressed, or hopeless: not at all 3. Trouble falling or staying asleep, or sleeping too much: not at all 4. Feeling tired or having little energy: not at all 5. Poor appetite or overeating: not at all 6. Feeling bad about yourself - or that you are a failure or have let yourself or your family down: not at all 7. Trouble concentrating on things, such as reading the newspaper or watching television: not at all 8. Moving or speaking so slowly that other people could have noticed. Or the opposite - being so fidgety or restless that you have been moving around a lot more than usual: not at all 9. Thoughts that you would be better off or of hurting yourself in some way: not at all Total score: 0 Depression Screening Interpretation: Negative Depression Screening Done: Yes 43780 - PHQ-9 Billing: Yes Source: Developed by Drs. Edgar Nance, Esme Jesus, Dhruv Hairston and colleagues, with an educational richard from [employer]. Thrive Questionnaire Date Thrive assessed: 12/15/24 I am a: Patient What is your living situation today?: I have a steady place to live Within the past 12 months, did the food you bought not last and you didn't have the money to get more?: Never true Within the past 12 months, did you worry whether your food would run out before you got money to buy more?: Never true Do you have trouble paying for medicines?: No Do you have trouble getting transportation to medical appointments?: No Do you have trouble paying your heating and electricity bill?: No Do you have trouble taking care of your child, family member or friend?: No Do you have trouble with day-to-day activities such as bathing, preparing meals, shopping, managing finances, etc.?: No Are you currently unemployed and looking for a job?: No Are you interested in more education?: No Please select the resources that you would like help with: None Currently or been in a relationship where the following occur: No concerns reported THRIVE Score: 0 AUDIT C Alcohol Use Questionnaire (AUDIT-C) 1. How often do you have a drink containing alcohol?: Never 3. How often do you have six or more drinks on one occasion?: Never Total Score: 0 DEBRA-7 AMB Questionnaire DEBRA-7 Date DEBRA - 7 assessed: 12/15/24 Feeling nervous, anxious, or on edge: 0 = Not at all Not being able to stop or control worryin = Not at all Worrying too much about different things: 0 = Not at all Trouble relaxin = Not at all Being so restless that it is hard to sit still: 0 = Not at all Becoming easily annoyed or irritable: 0 = Not at all Feeling afraid as if something awful might happen: 0 = Not at all Total DEBRA-7 score (0-4 normal; 5-9 mild; 10-14 moderate; 15-21 severe): 0 Source: Developed by Drs. Edgar Nance, Esme Jesus, Dhruv Hairston and colleagues, with an educational richard from [employer]. DEBRA-7 Assessment Billing DEBRA-7 Assessment Tool: DEBRA-7 Assessment 44717 Review of Systems Const Denies body aches, Denies chills, Denies excessive sweating, Denies fatigue, D enies fever(s) and Denies headache(s) Eyes Denies blurry vision ENT Denies dysphagia, Denies vertigo, Denies dizziness, Denies headache(s), Denies hearing loss and Denies tinnitus Card Denies chest pain, Denies chest pain with activity, Denies syncope, Denies irregular heart rhythm and Denies dyspnea Resp Denies chest congestion, Denies cough, Denies hemoptysis, Denies dyspnea and Denies wheezing GI Denies abdominal pain, Denies melena, Denies hematochezia, Denies coffee ground emesis, Denies dysphagia, Denies diarrhea, Denies nausea and Denies vomiting Denies difficulty urinating, Denies dysuria, Denies urinary frequency, Denies urinary hesitancy and Denies urinary urgency Musc Denies arthralgias, Denies limited range of motion, Denies muscle cramps and Denies muscle weakness Skin/Breast Denies rash and Denies skin ulcer Neuro Denies Abnormal speech present, Denies confusion, Denies vertigo, Denies dizziness, Denies syncope, Denies headache(s), Denies memory loss and Denies seizure-like activity Psych Denies anxiety, Denies confusion, Denies depression, Denies memory loss, Denies panic attacks and Denies paranoia Endo Denies excessive sweating, Denies fatigue, Denies flushing, Denies polydipsia and Denies polyuria Aller/Immun Denies wheezing Physical exam (Primary Care) Vital Signs: Last Vital Signs Pulse 79 12/15/24 08:13 BP 122/52 L 12/15/24 08:13 Pulse Ox 98 12/15/24 08:13 Oxygen Delivery Method Room Air 12/15/24 08:13 BMI result Body Mass Index 26.6 Tobacco/Smoking Status: Tobacco use Status Tobacco use date assessed 12/15/24 12/15/24 08:18 Patient Tobacco Use Status Never used Tobacco 12/15/24 08:24 e-Cigarette/Vaping Use Never Used 12/15/24 08:24 PHQ-9: PHQ-9 Score PHQ-9: Total score 0 12/15/24 08:24 Depression Screening Interpretation: Negative Thrive Assessment: Date of Thrive Assessment Date Thrive assessed 12/15/24 12/15/24 08:18 Currently or been in a relationship where the following occur: No concerns reported Const General: cooperative, comfortable, no acute distress, alert and awake; No confusion Orientation/consciousness: oriented to person, oriented to place, patient oriented x3 and No confusion HENMT Head: Yes normocephalic Ears: external ears normal and TM's normal bilaterally Face and sinus: No sinus tenderness Mouth: Normal oral and palatal mucosa present and tongue normal Teeth and gingiva: dentition normal and gingiva normal Throat: Yes posterior oropharynx normal, Yes tonsils normal and Yes uvula midline Eyes Conjunctivae: conjunctivae normal Sclerae: sclerae normal Pupils: Equal, round and reactive pupils present EOM: EOMs intact bilaterally Direct Ophthalmoscopy: No no photophobia Neck Neck: Yes no lymphadenopathy, No tender and Yes no JVD Thyroid: Thyroid normal Carotids: no bruits Chest Chest palpation & inspection: no tenderness Resp Effort & Inspection: normal respiratory effort, no audible wheezes, not labored and no stridor Auscultation: no crackles, no rales, no rhonchi and no wheezes Cardio Jugular venous distension: no JVD Rate: regular rate, not bradycardic and not tachycardic Rhythm: regular rhythm Heart sounds: Murmur heart sound present diastolic III/ Bruits: no carotid bruits Peripheral pulses: Peripheral pulses 2+ throughout GI Inspection: Yes normal to inspection, No abdominal wall ecchymosis and No visible herniation Palpation (GI): Soft to palpation, nontender, no guarding, not rigid and No hepatosplenomegaly present Auscultation: normoactive bowel sounds General: Yes no CVA tenderness Back/Spine/Pelvis Back: no CVA tenderness and No back tenderness Cervical Spine: cervical ROM normal Thoracic/Lumbar Spine: thoracic and lumbar spine normal to inspection, straight leg raise negative bilaterally, No thoraco-lumbar ROM limited and No lumbar spinal tenderness Skin Lesions: no lesions Rashes: no rashes Wounds: no wounds Neuro General: oriented to person, oriented to place, patient oriented x3, CN's II-XI intact bilaterally and No confusion Cranial nerves: Yes Equal, round and reactive pupils present and Yes Normal accommodation reflex present Cognition (Neuro): normal cognition Speech: No Abnormal speech present Gait exam (Neuro): Normal gait present Motor exam (neuro): 5/5 motor strength present throughout Extrem Right upper extremity: full ROM; no cyanosis Left upper extremity: full ROM; no cyanosis Right lower extremity: no edema Left lower extremity: no edema Psych Appearance: grossly normal Mental Status: mental status grossly normal Affect: normal affect Attitude: cooperative Thought process: Normal thought process present Office Procedures Flu Questionnaire Does the patient have a severe egg allergy?: No Does the patient have severe life threatening allergies?: No Does the patient have a fever or illness today?: No Has the patient ever had Guillain-[place] Syndrome?: No Has the patient ever had any past reaction to a flu shot?: No Immunizations Fluarix Triv [id number] (PF) 45 mcg (15 mcg x 3)/0.5 mL IM syringe Performing Provider: Yvan Shi PA-C [facility] Administered by: SENA Yip on 12/15/24 08:39 Dose Route Admin Location Dispensed Lot Number Expiration Date [facility] Insurance Advisor 0.5 mL IM Left Deltoid 0.5 mL [id number] 05/18/25 [id number] [place] VIS Given Date VIS Provided VIS Publication Date 12/15/24 Single Vaccine 21 Eligibility Eligibility Date Funding Source Not [facility] Eligible 12/15/24 Private Coding Diagnoses Annual physical exam Z00.00 Essential hypertension I10 Hypertension type: essential hypertension Mixed hyperlipidemia E78.2 Hyperlipidemia type: mixed hyperlipidemia Coronary artery disease involving [place] coronary artery of [place] heart without angina pectoris I25.10 Associated angina: without angina Coronary Disease-Associated Artery/Lesion type: [place] artery [place] vs. transplanted heart: [place] heart Dilated cardiomyopathy I42.0 Cardiomyopathy type: dilated Severe aortic regurgitation I35.1 Additional Codes DEBRA-7 Assessment Billing - DEBRA-7 Assessment Tool: DEBRA-7 Assessment 43220 ([id number]) PHQ-9 - 66373 - PHQ-9 Billing: Yes ([id number]) Assessment & Plan Assessment & Plan (1) Annual physical exam: Code(s): Z00.00 - Encounter for general adult medical examination without abnormal findings Category: Medical Plan: As scheduled (2) HTN (hypertension): Code(s): I10 - Essential (primary) hypertension Category: Medical Qualifiers: Hypertension type: essential hypertension Qualified Code(s): I10 - Essential (primary) hypertension Plan: Patient's blood pressure acceptable today in office. Will continue his current dose of antihypertensive medication with goal blood pressure to remain below 140/90 (3) HLD (hyperlipidemia): Code(s): E78.5 - Hyperlipidemia, unspecified Category: Medical Qualifiers: Hyperlipidemia type: mixed hyperlipidemia Qualified Code(s): E78.2 - Mixed hyperlipidemia Plan: Patient is due for needed fasting labs to evaluate total cholesterol and LDL. Goal LDL optimally to be below 70. (4) CAD (coronary artery disease): Code(s): I25.10 - Atherosclerotic heart disease of [place] coronary artery without angina pectoris Category: Medical Qualifiers: Associated angina: without angina Coronary Disease-Associated Artery/Lesion type: [place] artery [place] vs. transplanted heart: [place] heart Qualified Code(s): I25.10 - Atherosclerotic heart disease of [place] coronary artery without angina pectoris Plan: As above (5) Cardiomyopathy: Code(s): I42.9 - Cardiomyopathy, unspecified Category: Medical Qualifiers: Cardiomyopathy type: dilated Qualified Code(s): I42.0 - Dilated cardiomyopathy Plan: Patient was followed by Cardiology though has lost his follow up. Has cardiomyopathy related to his aortic valve regurgitation. No overt signs heart failure noted on physical exam today. (6) Severe aortic regurgitation: Code(s): I35.1 - Nonrheumatic aortic (valve) insufficiency Category: Medical Plan: Patient has severe aortic valve regurgitation. Has grade III murmur on physical exam. Again no overt signs of heart failure. He has been told he needed an aortic valve replacement. He would like to have a 2nd opinion with Cardiology group locally. Orders: Orders Influenza [id number] Immunization Today Z23 - Encounter for immunization Referrals Cardiology Referral I35.1 - Nonrheumatic aortic (valve) insufficiency Medications: New Fluarix Triv [id number] (PF) (flu vacc [id number] 6mos up(PF)) 0.5 mL IM ONCE 0.5 mL 0RF NS Z23 - Encounter for immunization
== END 2024-12-15 08:40 | disposition home or self-care (01) ==
PROVIDERS: PCP Physician Assistant; Visit Provider Physician Assistant
DX: Z23 Encounter for immunization (principal)

== ENCOUNTER → 2024-12-15 08:04 | Outpatient (BNVA) | payer OTHER, SELFPAY | PROVIDERS: PCP Physician Assistant; Visit Provider Physician Assistant | DX: Z00.00 Encounter for general adult medical examination without abnormal findings (principal); Z23 Encounter for immunization; I10 Essential (primary) hypertension; E78.2 Mixed hyperlipidemia; I25.10 Atherosclerotic heart disease of native coronary artery without angina pectoris; I42.0 Dilated cardiomyopathy; I35.1 Nonrheumatic aortic (valve) insufficiency; Z79.899 Other long term (current) drug therapy | CPT/HCPCS: 90471; 90656; 96127 ==

== ENCOUNTER 2024-12-29 18:27 | Emergency (ER) | payer OTHER, SELFPAY ==
--- NOTE | ~2024-12-29 | XR_ITS ---
CLINICAL HISTORY: shortness of breath EXAM: Two views of the chest. COMPARISON: CR/VT/SR - XR CHEST 2V - 01/02/23 19:52 EST FINDINGS: Normal cardiac, mediastinal, and hilar contours. Normal heart size. No pleural effusion or pneumothorax. Lungs are clear. No acute bone finding. IMPRESSION: 1. No acute cardiopulmonary process demonstrated. This document has been electronically signed by: Mumtaz Wilson MD on 12/29/2024 21:10:55
--- NOTE | 2024-12-29 19:05 | ED_ITS ---
HPI - General Adult General Chief complaint: Dyspnea Stated complaint: trouble breathing Time Seen by Provider: 12/29/24 23:07 Source: patient Mode of arrival: ambulatory Limitations: no limitations History of Present Illness ED Provider: HPI narrative: Patient with a strep anxiety and panic attacks patient's mother phenol his this week just prior to arrival patient is started feeling short of breath with dry cough denies any history of asthma no shortness a breath or chest pain on arrival saturating 97% at room air lungs were clear no fever no chills no upper respiratory symptoms Related Data Previous Rx's ?Medication ?Instructions ?Recorded amlodipine 5 mg tablet (Norvasc) 5 mg PO DAILY 30 days #30 tabs 09/30/24 atorvastatin 40 mg tablet 40 mg PO DAILY #30 tabs 12/25/24 lisinopril 20 1 tab PO DAILY #30 tabs 12/25/24 mg-hydrochlorothiazide 12.5 mg tablet Allergies Allergy/AdvReac Type Severity Reaction Status Date / Time No Known Allergies Allergy Verified 12/29/24 19:08 Review of Systems 2 Review of Systems: Yes all other systems are reviewed and are negative [facility] Past Medical History Medical History Severe aortic regurgitation Surgical History No history of previous surgery Family History Family History Mother Stroke Father Heart attack, Onset Age: 58 Social History Social History Housing: House Unable to assess alcohol history related to: Unknown Alcohol intake: former Year quit: 2006 Patient Tobacco Use Status: Never used Tobacco Smoked in Last 30 Days: No e-Cigarette/Vaping Use: Never Used Second Hand Smoke Exposure: No Use of substances other than those prescribed or required for medical reasons: Unknown Advance Directives: No Advance Directives Information Provided: No Do you have a plan to hurt others: No Plan service: No Current occupational status: employed Current occupation: [employer] Current occupational exposures/hazards: No Cognitive needs: No Hearing needs: No Vision needs: No Physical Exam ED Vital Signs: Vital Signs - 24 hr 12/29/24 19:06 12/29/24 22:33 12/29/24 23:58 Temperature 98.6 F 97.9 F Pulse Rate 83 80 76 Respiratory Rate 24 H 16 16 Blood Pressure 153/96 H 147/51 H 146/85 H Pulse Oximetry 95 95 96 Oxygen Delivery Method Room Air Room Air Room Air 12/30/24 00:15 Temperature 98 F Pulse Rate 76 Respiratory Rate 16 Blood Pressure 146/85 H Pulse Oximetry 96 Oxygen Delivery Method Room Air BMI result Body Mass Index 26.2 Appearance: Alert. Oriented X3. No acute distress. Anxious Eyes: No pallor or icterus ENT: Pharynx normal. Oral Mucosa moist Neck: Normal inspection. Neck supple. CVS: Normal heart rate and rhythm. Pulses normal. Respiratory: No respiratory distress. Equal air entry bilateral, no wheezing/rales/rhonchi Abdomen: Soft and nontender. Bowel sounds are present, no mass palpable, no CVA tenderness Skin: Skin warm and dry. Normal skin color. Normal skin turgor. Extremities: No lower extremity edema. No calf tenderness Neuro: Oriented X 3. No motor deficit. Course Course Course Narrative: RME, this is a rapid medical exam performed by Mario Chester please refer to primary provider for complete H&P- 59-year-old male with history of aortic regurgitation, cardiomyopathy, hypertension, hyperlipidemia, coronary artery disease presents for evaluation of shortness of breath over the last few hours. His lungs are clear to auscultation. Plan for cardiac workup, chest x-ray and viral swabs. Medical Decision Making Medical Decision Making [facility] Narrative: Patient has increased anxiety and panic attack no acute ischemic changes in the EKG no significant delta change in the troponin no chest pain after arrival patient was panic and under stress as her mother has this weakend patient's D-dimer negative for PE lungs was clear Differential Diagnosis Differential Diagnoses: The differential diagnosis associated with the presentation includes ACS/anxiety/panic attack/PE Lab Data [facility] Lab Attestation statement: I reviewed the patient's lab results. 12/29/24 19:27 12/29/24 19:27 Labs: Lab Results 12/29/24 12/29/24 Range/Units 19:27 22:38 WBC 8.9 (4.8-10.8) X10*3/uL RBC 4.54 L (4.60-5.80) X10*6/uL Hgb 14.1 (14.0-18.0) g/dl Hct 40.3 L (42.0-52.0) % MCV 88.8 (80.0-98.0) fL MCH 31.1 (27.0-33.0) pg MCHC 35.0 (31.0-36.0) g/dl RDW 12.5 (11.0-16.0) % Plt Count 221 (160-400) X10*3/uL MPV 9.2 L (9.4-12.4) fL Immature Gran % (Auto) 0.2 (0.0-0.4) % Neut % (Auto) 62.1 (45-73) % Lymph % (Auto) 22.3 (20-40) % Harmon % (Auto) 10.1 (2-11) % Eos % (Auto) 4.4 H (0-4) % Baso % (Auto) 0.9 (0-2) % Lymph # (Auto) 2.0 (1.2-4.9) X10*3/uL Harmon # (Auto) 0.9 (0.1-1.2) X10*3/uL Eos # (Auto) 0.4 (0.0-0.4) X10*3/uL Baso # (Auto) 0.1 (0.0-0.2) X10*3/uL Abs Immat Gran (auto) 0.02 (0.00-0.03) X10*3/uL Absolute Neuts (auto) 5.6 (2.0-8.3) x10*3/uL Absolute Nucleated RBC 0.000 (0.0-0.012) X10*3/uL Nucleated RBC % (auto) 0.0 (0.0-0.2) /100WBC PT 12.5 H (10.9-12.4) SEC INR 1.1 (0.9-1.1) D-Dimer High Sensitivty < 150 NG/ML Sodium 138 (135-145) mmol/L Potassium 4.1 (3.3-5.1) mmol/L Chloride 108 (96-108) mmol/L Carbon Dioxide 24 (22-29) mmol/L Anion Gap 10 L (12-20) BUN 15 (9-16) mg/dL Creatinine 1.33 (0.5-1.4) mg/dL Estim Creat Clear Calc 55.2 Estimated GFR 55 Random Glucose 123 H (60-115) mg/dL Calcium 8.3 L (8.4-10.2) mg/dL Total Bilirubin 0.7 (0.0-1.0) mg/dL AST 37 (5-37) U/L ALT 48 H (0-40) U/L Alkaline Phosphatase 104 (39-117) U/L Troponin I High Sens 18.5 24.0 (<3.5-35.0) ng/L B-Natriuretic Peptide 43 (<100) pg/mL Total Protein 6.7 (6.5-8.0) g/dL Albumin 3.8 (3.5-5.0) g/dL Lipase 88 H (8-78) U/L Influenza Type A (PCR) NEGATIVE (Negative) Influenza Type B (PCR) NEGATIVE (Negative) RSV RNA Qual (PCR) NEGATIVE (Negative) SARS-CoV-2 RNA (RT-PCR) NEGATIVE (Negative) Independent Interpretation I performed an independent interpretation of an: EKG Interpretation: Normal sinus rhythm heart rate 78 beats per minute no acute STT wave changes no acute ischemia Discharge Plan Discharge Clinical Impression: Panic attack as reaction to stress Patient Disposition: Home, Self-Care Instructions: Panic Attack (ED) Additional Instructions: Continue medications as prescribed by your PCP and follow up as needed Drink plenty of fluids rest at home Prescriptions: No Action amlodipine [Norvasc] 5 mg tablet 5 mg PO DAILY 30 Days Qty: 30 0RF Rx Instructions: PLEASE CALL AND [facility] APPT FOR REFILLS lisinopril-hydrochlorothiazide 20-12.5 mg tablet 1 tab PO DAILY Qty: 30 1RF atorvastatin 40 mg tablet 40 mg PO DAILY Qty: 30 1RF Interventions: ED Discharge Assessment Last Done: 12/30/24 00:15 Discharge Date/Time: 12/30/24 00:16 Print Language: Ivorian
[2024-12-29 19:06] VITALS: BP 153/96; PULSE 83; RESP 24; TEMP 37; O2SAT 95; BMI 26.2
--- NOTE | 2024-12-29 19:06 | ECG_ITS ---
Test Reason : SOB Blood Pressure : */* mmHG Vent. Rate : 78 BPM Atrial Rate : 78 BPM P-R Int : 170 ms QRS Dur : 102 ms QT Int : 380 ms P-R-T Axes : 50 47 -51 degrees QTcB Int : 433 ms Normal sinus rhythm Minimal voltage criteria for LVH, may be normal variant ( Sokolow-Godfrey ) ST & T wave abnormality, consider inferolateral ischemia Abnormal ECG When compared with ECG of 02-Jan-2023 19:52, T wave inversion now evident in Inferior leads Referred By: Bennett Chester Electronically Signed By: JORDAN JON MD
[2024-12-29 19:32] LABS: MANUAL DIFF FLAG NO
[2024-12-29 19:36] LABS: Basophils Absolute Auto 0.1 X10*3/uL (0.0-0.2); Basophils Percent Auto 0.9 % (0-2); Eosinophils Absolute Auto 0.4 X10*3/uL (0.0-0.4); Eosinophils Percent Auto 4.4 % (0-4); Hematocrit 40.3 % (42.0-52.0); Hemoglobin 14.1 g/dl (14.0-18.0); Imm Gran Abs Auto 0.02 X10*3/uL (0.00-0.03); Imm Gran Pct Auto 0.2 % (0.0-0.4); Lymphocytes Percent Auto 22.3 % (20-40); Mean Corpuscular Hemoglobin 31.1 pg (27.0-33.0); Mean Corpuscular Volume 88.8 fL (80.0-98.0); Mean Platelet Volume 9.2 fL (9.4-12.4); Monocytes Absolute Auto 0.9 X10*3/uL (0.1-1.2); Monocytes Percent Auto 10.1 % (2-11); Neutrophils Absolute Auto 5.6 x10*3/uL (2.0-8.3); Neutrophils Percent Auto 62.1 % (45-73); Platelet Count 221 X10*3/uL (160-400); Red Blood Count 4.54 X10*6/uL (4.60-5.80); Red Cell Distribution Width 12.5 % (11.0-16.0); White Blood Count 8.9 X10*3/uL (4.8-10.8)
[2024-12-29 19:41] LABS: INTERNATIONAL NORM RATIO 1.1 (0.9-1.1); Prothrombin Time 12.5 SEC (10.9-12.4)
[2024-12-29 19:49] LABS: Alanine Aminotransferase 48 U/L (0-40); Albumin Level 3.8 g/dL (3.5-5.0); Alkaline Phosphatase 104 U/L (39-117); Anion Gap 10 (12-20); Aspartate Amino Transferase 37 U/L (5-37); Bilirubin Total 0.7 mg/dL (0.0-1.0); Blood Urea Nitrogen 15 mg/dL (9-16); Calcium 8.3 mg/dL (8.4-10.2); Carbon Dioxide 24 mmol/L (22-29); Chloride 108 mmol/L (96-108); Creatinine Clr Calc Pharmacy 55.2; Estimated Glomerular Filt Rate 55; Glucose Random 123 mg/dL (60-115); Lipase 88 U/L (8-78); Potassium 4.1 mmol/L (3.3-5.1); Sodium 138 mmol/L (135-145); Total Protein 6.7 g/dL (6.5-8.0)
[2024-12-29 19:54] LABS: B Type Natriuretic Peptide 43 pg/mL (<100)
[2024-12-29 19:56] LABS: Troponin-I High Sensitivity 18.5 ng/L (<3.5-35.0)
[2024-12-29 20:09] LABS: Influenza A PCR NEGATIVE (Negative); Influenza B PCR NEGATIVE (Negative); Resp Syncy Virus RNA Qual PCR NEGATIVE (Negative); SARS COV2 PCR INHOUSE NEGATIVE (Negative)
[2024-12-29 22:33] VITALS: BP 147/51; PULSE 80; RESP 16; TEMP 36.6; O2SAT 95
[2024-12-29 23:56] LABS: D Dimer High Sensitivity < 150 NG/ML
[2024-12-29 23:58] VITALS: BP 146/85; PULSE 76; RESP 16; O2SAT 96
[2024-12-30 00:15] VITALS: BP 146/85; PULSE 76; RESP 16; TEMP 36.6; O2SAT 96
== END 2024-12-30 00:16 | disposition home or self-care (01) ==
PROVIDERS: Physician Assistant; Emergency Provider Internal Medicine; PCP Physician Assistant
DX: F41.0 Panic disorder [episodic paroxysmal anxiety] (principal); R06.02 Shortness of breath; R05.9 Cough, unspecified; Z03.818 Encounter for observation for suspected exposure to other biological agents ruled out
CPT/HCPCS: 0241U; 36415; 71046; 80053; 83690; 83880; 84484; 85025; 85379; 85610; 93005; 99283; 99284

== ENCOUNTER → 2024-12-29 19:06 | Outpatient (BNV) | payer OTHER, SELFPAY | PROVIDERS: Emergency Provider Internal Medicine; PCP Physician Assistant; Visit Provider Internal Medicine Cardiovascular Disease | DX: R94.31 Abnormal electrocardiogram [ECG] [EKG] (principal) | CPT/HCPCS: 93010 ==

== ENCOUNTER → 2024-12-29 19:07 | Outpatient (BNV) | payer OTHER, SELFPAY | PROVIDERS: PCP Physician Assistant; Visit Provider Radiology Diagnostic Radiology | DX: R06.02 Shortness of breath (principal) | CPT/HCPCS: 71046 ==

== ENCOUNTER 2025-06-16 11:01 | Outpatient (AMB) | payer OTHER, SELFPAY ==
--- NOTE | 2025-06-16 11:24 | A.OFFPC_ITS ---
Vital Signs 06/16/25 11:25 Height 5 ft 6 in Weight 155 lb BMI 25.0 BP 136/58 L Blood Pressure Location Lt brachial Position Sitting Pulse 72 Pulse Source Pulse Oximeter Temp 96.9 F Temp Source Temporal Artery Scan Pulse Oximetry (%) 96 Oxygen Delivery Method Room Air Intake Visit Reasons: f/u HTN/ Cardiomyopathy Intake Note: Patient is here to follow up on HTN, Cardiomyopathy Front Desk Associate Required: No Power Shovel Mechanic: Not Required per policy Accompanied by: Self / Same As Patient Allergies No Known Allergies Allergy (Verified 06/16/25 11:55) Medication List - Last Reconciled 06/16/25 by Yvan Shi PA-C amlodipine (Norvasc) 5 mg PO DAILY 30 days atorvastatin 40 mg PO DAILY lisinopril-hydrochlorothiazide 20-12.5 mg 1 tab PO DAILY Tobacco use date assessed: 06/16/25 Dental Screening Dental Screen Date: 12/15/24 HPI f/u HTN/ Cardiomyopathy HPI Details Patient is a 60 year male here today for for a f/u visit.? Patient has a past medical history significant for hypertension, severe aortic regurgitation, LVH and coronary artery disease. His mother this past winter/ December of 2024. Now he is living alone Aortic valve stenosis/cardiomyopathy: Patient is followed by Cardiology for coronary artery disease and aortic regurgitation.? He is due for repeat echocardiogram. Patient is in need of a aortic valve replacement though was originally apprehensive on doing this at this time due to having to take care was mother. Otherwise he has no overt signs of Congestive heart failure. 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 .. Hypertension:? Blood pressure stable today in office.? He reports he is adherent to antihypertensive medications.? He denies any side effects. .. Hyperlipidemia: Most recent lipid panel showing fairly well controlled total cholesterol and LDL. Optimal LDL to be below 70 LDL due to his coronary artery disease [facility] Medical History Severe aortic regurgitation Surgical History No history of previous surgery Family History Mother Stroke Father Heart attack, Onset Age: 58 Social History Housing: House Unable to assess alcohol history related to: Unknown Alcohol intake: former Year quit: 2006 Patient Tobacco Use Status: Never used Tobacco e-Cigarette/Vaping Use: Never Used Second Hand Smoke Exposure: No service: No Current occupational status: employed Current occupation: [employer] Current occupational exposures/hazards: No Cognitive needs: No Hearing needs: No Vision needs: No Questionnaire PHQ-9 Over the last 2 weeks, how often have you been bothered by any of the following problems? 1. Little interest or pleasure in doing things: not at all 2. Feeling down, depressed, or hopeless: not at all 3. Trouble falling or staying asleep, or sleeping too much: not at all 4. Feeling tired or having little energy: not at all 5. Poor appetite or overeating: not at all 6. Feeling bad about yourself - or that you are a failure or have let yourself or your family down: not at all 7. Trouble concentrating on things, such as reading the newspaper or watching television: not at all 8. Moving or speaking so slowly that other people could have noticed. Or the opposite - being so fidgety or restless that you have been moving around a lot more than usual: not at all 9. Thoughts that you would be better off or of hurting yourself in some way: not at all Total score: 0 Depression Screening Interpretation: Negative Depression Screening Done: Yes Source: Developed by Drs. Edgar Nance, Esme Jesus, Dhruv Hairston and colleagues, with an educational richard from [employer]. Thrive Questionnaire Date Thrive assessed: 12/15/24 I am a: Patient What is your living situation today?: I have a steady place to live Within the past 12 months, did the food you bought not last and you didn't have the money to get more?: Never true Within the past 12 months, did you worry whether your food would run out before you got money to buy more?: I choose not to answer this question Do you have trouble paying for medicines?: No Do you have trouble getting transportation to medical appointments?: I choose not to answer this question Do you have trouble paying your heating and electricity bill?: I choose not to answer this question Do you have trouble taking care of your child, family member or friend?: I choose not to answer this question Do you have trouble with day-to-day activities such as bathing, preparing meals, shopping, managing finances, etc.?: I choose not to answer this question Are you currently unemployed and looking for a job?: I choose not to answer this question Are you interested in more education?: I choose not to answer this question Please select the resources that you would like help with: None Currently or been in a relationship where the following occur: I choose not to answer THRIVE Score: 0 AUDIT C Alcohol Use Questionnaire (AUDIT-C) 1. How often do you have a drink containing alcohol?: Never Total Score: 0 DEBRA-7 AMB Questionnaire DEBRA-7 Date DEBRA - 7 assessed: 12/15/24 Feeling nervous, anxious, or on edge: 0 = Not at all Not being able to stop or control worryin = Not at all Worrying too much about different things: 0 = Not at all Trouble relaxin = Not at all Being so restless that it is hard to sit still: 0 = Not at all Becoming easily annoyed or irritable: 0 = Not at all Feeling afraid as if something awful might happen: 0 = Not at all Total DEBRA-7 score (0-4 normal; 5-9 mild; 10-14 moderate; 15-21 severe): 0 Source: Developed by Drs. Edgar Nance, Esme Jesus, Dhruv Hairston and colleagues, with an educational richard from [employer]. Review of Systems Const Denies headache(s) Eyes Denies loss of vision ENT Denies vertigo, Denies dizziness, Denies headache(s) and Denies sore throat Card Denies chest pain, Denies leg edema and Denies lightheadedness Resp Denies cough, Denies hemoptysis and Denies wheezing GI Denies abdominal pain, Denies melena, Denies constipation, Denies diarrhea and Denies vomiting Denies dysuria, Denies urinary frequency and Denies urinary urgency Musc Denies arthralgias, Denies joint swelling, Denies numbness and Denies tingling Neuro Denies Abnormal speech present, Denies behavioral changes, Denies vertigo, Denies dizziness, Denies headache(s), Denies loss of vision, Denies memory loss, Denies numbness and Denies tingling Psych Denies anxiety, Denies behavioral changes, Denies depression, Denies memory loss and Denies panic attacks Larry/Lymph Denies easy bleeding and Denies easy bruising Aller/Immun Denies wheezing Physical exam (Primary Care) Vital Signs: Last Vital Signs Temp 96.9 F 06/16/25 11:25 Pulse 72 06/16/25 11:25 BP 136/58 L 06/16/25 11:25 Pulse Ox 96 06/16/25 11:25 Oxygen Delivery Method Room Air 06/16/25 11:25 BMI result Body Mass Index 25.0 Tobacco/Smoking Status: Tobacco use Status Tobacco use date assessed 06/16/25 06/16/25 11:37 Patient Tobacco Use Status Never used Tobacco 06/16/25 11:37 e-Cigarette/Vaping Use Never Used 06/16/25 11:37 PHQ-9: PHQ-9 Score PHQ-9: Total score 0 06/16/25 11:56 Depression Screening Interpretation: Negative Thrive Assessment: Date of Thrive Assessment Date Thrive assessed 12/15/24 06/16/25 11:37 Currently or been in a relationship where the following occur: I choose not to answer Const General: healthy appearing, no acute distress, alert and awake Nutritional Appearance: well nourished Orientation/consciousness: oriented to person, oriented to place and oriented to time HENMT Ears: TM's normal bilaterally General nose exam: Normal nasal mucous membranes and turbinates present Eyes Conjunctivae: conjunctivae normal Sclerae: sclerae normal Pupils: Equal, round and reactive pupils present Neck Neck: Yes no lymphadenopathy and Yes no JVD Thyroid: Thyroid normal Carotids: no bruits Resp Effort & Inspection: normal respiratory effort and not tachypneic Auscultation: no crackles, no rales, no rhonchi and no wheezes Cardio Rate: regular rate Rhythm: regular rhythm Heart sounds: no murmurs and normal S1 and S2 GI Palpation (GI): Soft to palpation, nontender, no hepatomegaly and no splenomegaly Auscultation: normal bowel sounds Skin General skin exam: no rashes or lesions noted and dry skin Neuro General: oriented to person, oriented to place and oriented to time Cranial nerves: Yes Equal, round and reactive pupils present Speech: No Abnormal speech present Gait exam (Neuro): Normal gait present Motor exam (neuro): no tremor noted Extrem Right upper extremity: full ROM Left upper extremity: full ROM Right lower extremity: full ROM; no edema Left lower extremity: full ROM; no edema Psych Mental Status: mental status grossly normal Speech and movement: Normal speech and movement present Affect: normal affect Attitude: cooperative Thought process: Normal thought process present Results AMB Hemoglobin A1c AMB Hemoglobin A1c 5.3 % Last Edit by SENA Franklin on 06/16/25 11:43 Results Reviewed Results Reviewed: Laboratory Last Values Hgb A1c (Clinic) 5.3 % (4.0-6.0) 06/16/25 11:23 Coding Level of Care Code Est Pt Level 4 (08592) Diagnoses Essential hypertension I10 Hypertension type: essential hypertension Mixed hyperlipidemia E78.2 Hyperlipidemia type: mixed hyperlipidemia Coronary artery disease involving [place] coronary artery of [place] heart without angina pectoris I25.10 Associated angina: without angina Coronary Disease-Associated Artery/Lesion type: [place] artery [place] vs. transplanted heart: [place] heart Dilated cardiomyopathy I42.0 Cardiomyopathy type: dilated Severe aortic regurgitation I35.1 Assessment & Plan Assessment & Plan (1) HTN (hypertension): Code(s): I10 - Essential (primary) hypertension Category: Medical Qualifiers: Hypertension type: essential hypertension Qualified Code(s): I10 - Essential (primary) hypertension Plan: Patient's blood pressure acceptable today in office. Will continue his current dose of antihypertensive medication with goal blood pressure to remain below 140/90 (2) HLD (hyperlipidemia): Code(s): E78.5 - Hyperlipidemia, unspecified Category: Medical Qualifiers: Hyperlipidemia type: mixed hyperlipidemia Qualified Code(s): E78.2 - Mixed hyperlipidemia Plan: Patient is due for needed fasting labs to evaluate total cholesterol and LDL. Goal LDL optimally to be below 70. (3) CAD (coronary artery disease): Code(s): I25.10 - Atherosclerotic heart disease of [place] coronary artery without angina pectoris Category: Medical Qualifiers: Associated angina: without angina Coronary Disease-Associated Artery/Lesion type: [place] artery [place] vs. transplanted heart: [place] heart Qualified Code(s): I25.10 - Atherosclerotic heart disease of [place] coronary artery without angina pectoris Plan: As above Optimal LDL to be below 70 (4) Cardiomyopathy: Code(s): I42.9 - Cardiomyopathy, unspecified Category: Medical Qualifiers: Cardiomyopathy type: dilated Qualified Code(s): I42.0 - Dilated cardiomyopathy Plan: Patient was followed by Cardiology though has lost his follow up. Has cardiomyopathy related to his aortic valve regurgitation. No overt signs heart failure noted on physical exam today. (5) Severe aortic regurgitation: Code(s): I35.1 - Nonrheumatic aortic (valve) insufficiency Category: Medical Plan: Patient has severe aortic valve regurgitation. Has grade III murmur on physical exam. Again no overt signs of heart failure. He has been told he needed an aortic valve replacement. Orders: Orders Lipid Panel Today I42.0 - Dilated cardiomyopathy Complete Blood Count no Diff Today E78.2 - Mixed hyperlipidemia Comprehensive [place]. Panel Fast Today E78.2 - Mixed hyperlipidemia Microalbumin, Random (w Creat) Today I10 - Essential (primary) hypertension AMB Hemoglobin A1c Today Z13.9 - Encounter for screening, unspecified Prostate Specific Antigen Scr Today Z12.5 - Encounter for screening for malignant neoplasm of prostate
[2025-06-16 11:25] VITALS: BP 136/58; PULSE 72; TEMP 36.1; O2SAT 96; BMI 25.0
== END 2025-06-16 12:02 | disposition home or self-care (01) ==
LOC: HO.HMCH 11:02
PROVIDERS: PCP Physician Assistant; Visit Provider Physician Assistant
DX: I10 Essential (primary) hypertension (principal); E78.2 Mixed hyperlipidemia; I25.10 Atherosclerotic heart disease of native coronary artery without angina pectoris; I42.0 Dilated cardiomyopathy; I35.1 Nonrheumatic aortic (valve) insufficiency; Z13.9 Encounter for screening, unspecified

== ENCOUNTER → 2025-06-16 11:01 | Outpatient (BNVA) | payer OTHER, SELFPAY | PROVIDERS: PCP Physician Assistant; Visit Provider Physician Assistant | DX: I10 Essential (primary) hypertension (principal); E78.2 Mixed hyperlipidemia; I25.10 Atherosclerotic heart disease of native coronary artery without angina pectoris; I42.9 Cardiomyopathy, unspecified; I35.1 Nonrheumatic aortic (valve) insufficiency; Z13.1 Encounter for screening for diabetes mellitus; Z13.31 Encounter for screening for depression | CPT/HCPCS: 83036; 96127 ==